=== PATIENT | male | born 1940 | race Caucasian/White ===

== ENCOUNTER 2016-05-22 15:23 | Inpatient (IN) | payer MEDICARE, OTHER, MEDICAID ==
[~2016-05-22] VITALS: Ht 165.1 cm; Wt 60.1 kg
--- NOTE | 2016-05-25 15:08 | CO ---
ADMIT: 05/22/2016 RM/LOC: 310 [facility] MR#: [id number] [address] [address] [place] [address] Consultation SEX: M AGE: 75 : 1940 DATE OF CONSULTATION: 05/25/2016 ATTENDING PHYSICIAN: Jones Guevara CONSULTING PHYSICIAN: Charo Harp APRN TIME IN: 1040 hours. TIME OUT: 1110 hours. REASON FOR CONSULTATION: Supportive Care consultation was requested by Dr. Olguin for discussion of goals for care. HISTORY OF PRESENT ILLNESS: Mr. Rojas is a delightful 75-year-old male with history of COPD. He also has a history of colon cancer and prostate cancer for which he has received treatment for. He was admitted to the hospital on May 22 with a COPD exacerbation and respiratory failure. He has remained on BiPAP. It is of note that he actually tolerates coming off the BiPAP in terms of his oxygen saturations; however, he then gets anxious and requires the mask to be placed back on. He was started on BuSpar therapy today and has used Xanax at times as well. Due to his complexities, Supportive Care consultation was requested to discuss goals for the time ahead. In terms of advanced directives, the patient is a full code status. He states that his brother, Guru Rojas, whose phone number is [phone], is his medical decisionmaker in the event that he cannot make decisions. Farzaneh feels that he has likely completed a healthcare [id number] document stating this. I have requested that his brother bring in the document so that we can review it and if needed, help in complete healthcare [id number] paperwork. He does not have a living will or POLST form on file. Symptomatically, the patient denies complaints currently. He actually appears fairly calm while I am present with him for discussion. He is weak and slightly debilitated. PAST MEDICAL HISTORY: 1. COPD. 2. Hypertension. 3. History of prostate cancer. 4. History of colon cancer. ALLERGIES: THE PATIENT HAS NO KNOWN MEDICATION ALLERGIES. CURRENT MEDICATIONS: Please see the patient's MAR for specific routes and dosages. His current medications are as follows: 1. Verelan PM. 2. Solu-Medrol. 3. BuSpar. 4. Lovenox. ADMIT: 05/22/2016 RM/LOC: 310 [facility] MR#: [id number] [address] [address] [place] [address] Consultation SEX: M AGE: 75 : 1940 5. Hyzaar. 6. Isoptin. 7. Levaquin. 8. Protonix. 9. NovoLog. 10.Zosyn. 11.DuoNeb. 12.Tylenol. 13.Nitrostat. SOCIAL HISTORY: The patient is not . He does not have children. He does not use alcohol, drugs, or tobacco currently. He does have a past smoking history. FAMILY HISTORY: Prior to his hospital stay, he was living at home independently. He states that he could ambulate and take care of his ADLs. His palliative performance scale prior to admission was around 70%. Currently, he is mostly sitting. He is requiring considerable to mainly assistance with ADLs. His intake is reduced. His current palliative performance score is a 40% to 50%. REVIEW OF SYSTEMS: A 10-point review of systems was completed and other than those pertinent positives and negatives mentioned the HPI, it is negative. PHYSICAL EXAMINATION: GENERAL: The patient is examined in the chair. He is in no acute distress. VITAL SIGNS: Temperature 97.5, pulse 123, respirations 24, blood pressure 170/94, oxygen 91% on BiPAP. HEENT: Head is normocephalic. Pupils are equal, round, and reactive with a diameter of 3 mm bilaterally. Oral mucosa pink and moist with fair dentition. NECK: Supple. RESPIRATORY: Respirations are equal and nonlabored on the BiPAP. Lungs are diminished throughout. CARDIOVASCULAR: Tachycardic. GASTROINTESTINAL: Soft, nontender. Bowel sounds are positive. MUSCULOSKELETAL: Generalized weakness. No obvious joint deformities. INTEGUMENTARY: Skin turgor is fair. NEUROLOGIC: Alert and oriented x3. He will follow commands. PSYCHIATRIC: Calm and cooperative. No agitation or delirium noted. IMPRESSION: 1. Debility. 2. Fatigue. 3. Anxiety. 4. Malaise. 5. Moderate protein-calorie malnutrition. 6. Chronic obstructive pulmonary disease with acute exacerbation. 7. History of colon cancer. ADMIT: 05/22/2016 RM/LOC: 310 [facility] MR#: [id number] [address] [place] [address] [place] [address] Consultation SEX: M AGE: 75 : 1940 8. History of prostate cancer. 9. Palliative care. 10.The patient is a full code. PLAN OF TREATMENT: 1. I was able to meet with the patient at the bedside. We reviewed his status and goals for the time ahead. He is hopeful for improvement through this current exacerbation. He is aware that he will likely need rehab at discharge for strengthening. He is hopeful to get back home within the next few weeks. He states that his brothers and sisters can help him if needed. He is aware the chronic and progressive nature of his COPD. He states that his mother of COPD and he watched the progression of the disease through her. 2. Reviewed code status and he directs to be a full code at this time. He is clear that he would not want to be kept alive fpc on ventilator if it ever came to that. 3. We reviewed advanced directives and he thinks that he has completed documentation making his brother, Guru, his healthcare [id number]. I have asked that they please bring this paperwork in if they are able to and we can review it. 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 We would like to thank Dr. Olguin for the invitation to participate in this patient's care. Total consultation time was 30 minutes from 1040 hours to 1110 hours with 15 minutes from 1045 hours to 1100 hours spent [id number] with the patient discussing goals for care and providing counseling and support. We will continue to follow along as needed with this patient. Charo Harp APRN/ wilmar JOB #: [id number] CC: Jones Guevara, Attending Physician Jones Guevara, Family Physician
--- NOTE | 2016-05-28 10:11 | CO ---
ADMIT: 05/22/2016 RM/LOC: 310 [facility] MR#: [id number] [address] [address] HONORIO [place] [address] Consultation SEX: M AGE: 75 : 1940 DATE OF CONSULTATION: 05/26/2016 ATTENDING PHYSICIAN: Jones Guevara CONSULTING PHYSICIAN: Nelson Stout MD CHIEF COMPLAINT: Shortness of breath and hypertension. HISTORY OF PRESENT ILLNESS: The patient is a 75-year-old male, who is known to us at the [facility] with a previous history of hypertension and DVT, PE, and hyperlipidemia. He states in the last couple of weeks he has been feeling worse. He noticed that he was more short of breath and was actually having a difficult time taking his inhalers because he was not able to breathe in well enough. Because of these symptoms, he was finally seen in the emergency room and was subsequently admitted for a COPD exacerbation. Over the last couple of days, he has continued to have some shortness of breath and wheezing. We were asked to see him today because of his blood pressure, which has been elevated at times with a systolic anywhere from 200 to 210. The patient states when he checks his blood pressure at home, which is not very often, it is usually 140 to 150 systolic. He had been compliant with his medicines. He normally takes a beta-irma, but has been off that during this hospital stay for concern of worsening of his wheezing. He has not had any chest pain or chest tightness and denies any palpitations. He had no other complaints today. PAST MEDICAL HISTORY: Significant for: 1. Hypertension. 2. Hyperlipidemia. 3. COPD. 4. History of tobacco abuse. 5. History of pulmonary embolus and DVT. 6. Stomach ulcer. 7. Appendectomy. 8. Colon resection for colon cancer. 9. Prostatectomy for prostate cancer. 10.Reflux. 11.Hearing loss. 12.Hypothyroidism. 13.Macular degeneration. ALLERGIES: NONE. HOME MEDICATIONS: Have included: 1. Clonazepam 0.5 mg 2 times daily. 2. Guaifenesin 400 mg 4 times daily as needed. 3. Hydrochlorothiazide 12.5 mg daily. 4. Isosorbide mononitrate 30 mg daily. 5. Levothyroxine 0.05 mg daily. 6. Loratadine 10 mg daily. ADMIT: 05/22/2016 RM/LOC: 310 [facility] MR#: [id number] 2620 [facility] [address] [place] [address] [place] [address] Consultation SEX: M AGE: 75 : 1940 7. Lovastatin 20 mg daily. 8. Metamucil daily. 9. Metoprolol tartrate 25 mg twice daily. 10.Omeprazole 20 mg twice daily. 11.Proventil 2 puffs every 4 to 6 hours as needed. 12.Singulair 10 mg daily. 13.Symbicort 2 puffs 2 times daily. 14.Tudorza Pressair 1 puff twice daily. 15.Vitamin B12, 500 mcg daily. 16.Vitamin D3, 2000 units daily. 17.Xarelto 20 mg daily. FAMILY HISTORY: Significant for a brother with diabetes. Father had a myocardial infarction and hypertension, and a mother had diabetes and hypertension. SOCIAL HISTORY: The patient has a significant history of smoking in the past and does drink coffee on a regular basis. He has a previous history of alcohol use, but quit drinking in 1989. He is retired. REVIEW OF SYSTEMS: GENERAL: Denies fatigue, fever, chills, sweats, rash, or weight loss. EYES: He also has difficulty with vision. Denies double vision, blurred vision, cataracts, or glaucoma. ENT: He does have some difficulty with hearing. Denies hearing loss or problems with nose, mouth or throat. PULMONARY: He has shortness of breath and wheezing. He has had an occasional cough. Denies sputum production, asthma, emphysema or bronchitis. Denies snoring loudly, wakefulness at night, or fatigue upon awakening. GASTROINTESTINAL: Denies heartburn or difficulty swallowing. No change in bowel habits. Denies dark or bloody stools. No history of ulcers, hiatal hernia, or gallbladder or liver disease. GENITOURINARY: Denies dysuria, hematuria, nocturia, urinary tract infection, or kidney stones. Denies history of renal insufficiency or failure. MUSCULOSKELETAL: He has had some arm and leg pains. Denies history of arthritis or gout. ENDOCRINE: Denies history of thyroid dysfunction or diabetes. HEMATOLOGIC: Denies history of anemia, easy bruising, or cancer. NEUROLOGIC: He has had some recent fatigue and weakness. Denies chronic headaches, dizziness, syncope, stroke, seizures or numbness or tingling. PSYCHIATRIC: Denies history of mental illness or feelings of depression. PHYSICAL EXAMINATION: VITAL SIGNS: Blood pressure was 180/120, heart rate 120, respirations 20 to 24, temperature 96.6 degrees Fahrenheit. SKIN: [place], warm and dry. EYES: Sclerae clear. No xanthelasmas. ENT: Oral mucosa is pink and moist. No jugular venous distention or carotid bruits. ADMIT: 05/22/2016 RM/LOC: 310 [facility] MR#: [id number] [address] [place] [phone] [place] [address] Consultation SEX: M AGE: 75 : 1940 CHEST: Lungs having diminished breath sounds and scattered wheezes throughout. HEART: Tachycardic without murmur. ABDOMEN: Soft and nontender. MUSCULOSKELETAL: Gait is normal. EXTREMITIES: Peripheral pulses palpable. No clubbing, cyanosis or edema. PSYCHIATRIC: Alert and oriented. Mood and affect are appropriate. ASSESSMENT: 1. Hypertension. 2. Chronic obstructive pulmonary disease exacerbation. 3. History of colon cancer. 4. Prostate cancer. 5. History of deep venous thrombosis and pulmonary embolism. 6. Hyperlipidemia. 7. History of smoking. PLAN: At this point, I believe a lot of the patient's hypertension is due to his current illness. We will titrate up on his medications. He may also have a component of anxiety, so would consider increasing anxiety medications if this continues to be an issue. At some point, would add back his beta-irma as I think that this is part of the reason his heart rate is fast, but because there was concern with the wheezing, we can certainly hold off for now as I do not think his tachycardia is a big concern. We would also consider rechecking echocardiogram sometime in the future. The last time we did in 2014 was normal. Nelson Stout MD/ wilmar JOB #: [id number] CC: Jones Guevara, Attending Physician Jones Guevara, Family Physician Jones Guevara MD
--- NOTE | 2016-05-28 10:29 | CO ---
ADMIT: 05/22/2016 RM/LOC: 310 [facility] MR#: [id number] [address] [address] SONALIJEREMÍAS [place] [place] [address] Consultation SEX: M AGE: 75 : 1940 DATE OF CONSULTATION: 05/22/2016 ATTENDING PHYSICIAN: Jones Guevara CONSULTING PHYSICIAN: Rudy Olguin MD HISTORY OF PRESENT ILLNESS: He is 75. He worked at the [employer] in [place] and in [place] in [facility]. He has given up smoking 10 year ago. He is on oxygen dependent for the last 3 years. He had previous prostate cancer operation done at the [facility] and had colon cancer operated in [place] by Dr. Sanford. No chemoradiation. He has hypertension. He has COPD. He uses inhaler. He has been to the ER today and admitted with COPD exacerbation. He had to know pneumonia seen on the chest x-ray, which I have personally reviewed from today and compared with 04/20/2016 and 04/09/2015 films. No pneumonia seen, no effusion seen. COPD change is detected. His blood gases today; 7.324, PCO2 of 67.2, PO2 of 95.7 and bicarb 34.2, potassium 4.2, glucose 150, BUN 29, creatinine 1.2. White count 8.3, hemoglobin 10.7, platelets 213. Lactic acid 1.6. He has wheezing. He is using BiPAP. PHYSICAL EXAMINATION: GENERAL: Appears comfortable. He was able to give history, kind of a faint voice, wants to rest. VITAL SIGNS: His blood pressure is high, it was 181/103. Heart rate 121, saturation, which was 97%, I see it has gone up to 97%. RESPIRATIONS: No distress, no edema, no calf tenderness. He does have expiratory wheeze. He has no rales, no heart murmur. ABDOMEN: Soft and nontender. He has been started on levofloxacin and Zosyn and IV fluid is going at 100 mL an hour and he will also get Solu-Medrol 125 q.8 hours, which I plan to continue at this time, but may cut down tomorrow when he is stable. IMPRESSION: 1. Chronic obstructive pulmonary disease exacerbation. ADMIT: 05/22/2016 RM/LOC: 310 [facility] MR#: [id number] [address] [address] FARZANEH [place] [address] Consultation SEX: M AGE: 75 : 1940 2. Hypercapnic respiratory failure. 3. Chronic hypoxia, oxygen dependent. 4. Hypertension. 5. Tachycardia. 6. History of colon cancer operated. 7. History of prostrate cancer operated. He lives alone here in [place]. He has never been , no children. He has 1 brother, who lives nearby. We will keep continuing the BiPAP. We will hopefully avoid the intubation. I am going to give him verapamil IV and p.o. with an aim to keep the heart rate and the blood pressure down. One time Xanax 0.25 mg has also been written. Hopefully, if we can relax that will help. I repeat a blood gas now to check and compare with the earlier one. Rudy Olguin MD/ wilmar JOB #: [id number] CC: Jones Guevara, Attending Physician Jones Guevara, Family Physician
--- NOTE | 2016-05-30 11:23 | HP ---
ADMIT: 05/22/2016 RM/LOC: 310 [facility] MR#: [id number] [address] [address] [place] [address] History and Physical SEX: M AGE: 75 : 1940 DATE OF SERVICE: CHIEF COMPLAINT AND HISTORY OF PRESENT ILLNESS: This 75-year-old male is admitted with increasing respiratory insufficiency. The patient has had longstanding severe COPD, which is oxygen dependent. MEDICATIONS: He has been taking at home: 1. Albuterol. 2. Budesonide. 3. Carbamide. 4. Clonazepam. 5. Cyanocobalamin. 6. Docusate. 7. Guaifenesin. 8. Hydrochlorothiazide 12.5 mg. 9. Isordil. 10.L-thyroxine 50 mcg .. 11.Loratadine. 12.Lovastatin. 13.Metoprolol. 14.Omeprazole. 15.Rivaroxaban. 16.Sulfamethoxazole. 17.Aspirin. 18.Cholecalciferol. 19.Montelukast. 20.Multivitamin. 21.Incruse Ellipta. 22.Singulair. He has been followed by the CT. He has also been seen by Oncology. ALLERGIES: NONE. SOCIAL HISTORY: The patient smoked until 10 years ago, he was a pack-a-day smoker, most of his life. He does not drink alcohol. FAMILY HISTORY: Includes heart disease, diabetes, and cancer. REVIEW OF SYSTEMS: HEENT: The patient wears glasses. CARDIORESPIRATORY: There is no history of congestive heart failure, pacemaker, edema, myocardial infarction. GI: There has been no nausea, vomiting, constipation, bloody stools, or diarrhea. : The patient has a history of prostate cancer. METABOLIC/ENDOCRINE: The patient has a history of hypothyroidism. The patient also has a history of colon cancer. PHYSICAL EXAMINATION: VITAL SIGNS: Blood pressure is mildly elevated 155/84, respirations are 18. ADMIT: 05/22/2016 RM/LOC: 310 [facility] MR#: [id number] [address] [address] [place] [address] History and Physical SEX: M AGE: 75 : 1940 GENERAL: The patient is alert, cooperative, and oriented x3. HEENT: The patient is currently on BiPAP, and he feels this is quite helpful to him. NECK: There is no carotid bruits present. HEART: Regular rhythm with no murmurs heard. LUNGS: Have rales bilaterally, occasional wheeze, and tachypnea present. ABDOMEN: Soft, nontender. Liver is not enlarged. Spleen is not palpable. No abnormal masses are palpated. Femoral pulses are strong and equal bilaterally. GENITALIA: Normal. EXTREMITIES: No cyanosis, clubbing or edema. ASSESSMENT: 1. Acute exacerbation of severe chronic obstructive pulmonary disease. 2. Hypothyroidism. 3. History of prostate cancer. 4. History of colon cancer. 5. Anxiety. 6. Hypertension. 7. Hypercholesterolemia. Jones Guevara MD/ wilmar JOB #: [id number] CC: Jones Guevara, Attending Physician Jones Guevara, Family Physician
--- NOTE | 2016-06-02 00:45 | ER ---
ADMIT: 05/22/2016 RM/LOC: 310 [facility] MR#: [id number] [id number] [place], [place] [address] [place] [address] Emergency Room Report SEX: M AGE: 75 : 1940 DATE: 05/22/2016 HISTORY OF PRESENT ILLNESS: The patient is a 75-year-old male, who was brought in by private vehicle with shortness of breath, productive cough for 10 days now. He has been treated with azithromycin and prednisone, but he felt like it was worse. PHYSICAL EXAMINATION: VITAL SIGNS: His vitals on admission to the emergency room; 148/87 blood pressure, MAP of 96, pulse 108, respirations 23, temp 97.6, O2 sats at 3 L 95% and he was working at it. RESPIRATIONS: Respiratory distress, fatigue, accessory muscle use. Retraction, splinting, decreased air movement. He is tachycardic. Otherwise, the rest of the physical examination see T-sheet. PAST MEDICAL HISTORY: Includes hypercholesterolemia, hypothyroidism, COPD, hypertension, and he is a chronic oxygen user. He used to smoke, he has a history. LABS: As I discuss originally, A negative. We did a sepsis workup on him. Procalcitonin less than 0.05. His CMP; sodium 133 with a chloride of 89, carbon dioxide 35, BUN 29, glucose 150, creatinine was 8.1, albumin 3.3, magnesium 2.5. Glomerular filtration is 60 with the MB of 4.9, and negative troponin. White count is 8.3 with 10.7 hemoglobin and hematocrit is 35.2. Blood cultures pending. Lactic acid is 1.6. The pCO2 corrected is 84.2 with a pH of 7.2, O2 sats 94, HCO3 of 36.9, INR 1.0. EKG 110, sinus tachycardia. The patient will be admitted by Dr. Willams and orders received by Dr. Willams. CLINICAL IMPRESSION: 1. Chronic obstructive pulmonary disease exacerbation. 2. Moderate sepsis secondary to respiratory distress. 3. Pneumonia. ANDREW Grubbs / Vinayak Hartley MD / modl JOB #: [id number] CC: Jones Guevara MD, Attending Physician Jones Guevara MD, Family Physician
--- NOTE | 2016-06-04 11:40 | DS ---
ADMIT: 05/22/2016 RM/LOC: 304 [facility] MR#: [id number] [address] [place], [place] [address] [place] [address] Discharge Summary SEX: M AGE: 75 : 1940 ADMISSION DATE: 05/22/2016 DISCHARGE DATE: 06/02/2016 HISTORY AND PHYSICAL: Please see the chart. LABORATORY AND X-RAY DATA: Please see the chart. CLINICAL COURSE: This 75-year-old male is admitted with an acute exacerbation of COPD. The patient initially required BiPAP. He did have hypercarbia and was quite dyspneic. This patient's problem has been end stage COPD. He has had multiple admissions, and he was placed on intravenous antibiotics. The patient again was referred to Pulmonology. He was placed on intravenous steroids, IV fluids were given. He was also started on Zosyn 3.375 g every 8 hours, DuoNeb inhalers. His chest x-ray showed no evidence of pneumonia. Xanax was given p.o. p.r.n. Verapamil also was given intravenously, and it was felt this was again an acute exacerbation of COPD. The patient slowly improved and during the hospitalization he had decided he did not want to be intubated but he really did not want aggressive treatment. He was covered with Protonix because of the steroids. His Lopressor was discontinued because of the beta irma. He was given Lovenox for DVT prevention, and he would have little air hunger. The patient has requested care and comfort measures only. I thought this was quite reasonable. He was placed on Ensure daily. Steroids were decreased. The patient is going to go on hospice and go to the senior living. Cardiology was asked to see the patient. He was given hydralazine and Xanax. He was hypertensive and was placed on clonidine 0.2 mg t.i.d. and at the time of discharge, the patient was alert, oriented. He was willing to go to the senior living. He did want care and comfort measures only. DISCHARGE MEDICATIONS: 1. BuSpar. 2. Prednisone 10 mg b.i.d. 3. Hyzaar 100/25 daily. 4. Levaquin 750 mg orally for 3 more days then discontinue. 5. Verelan 300 mg daily. 6. DuoNeb inhalations q.i.d. p.r.n. 7. Subcutaneous heparin. His Zosyn was discontinued. ADMIT: 05/22/2016 RM/LOC: 304 [facility] MR#: [id number] [address] [address] [place] [address] Discharge Summary SEX: M AGE: 75 : 1940 FINAL DIAGNOSES: 1. Acute exacerbation of COPD (chronic obstructive pulmonary disease). 2. History of tobacco abuse. 3. History of pulmonary embolism. 4. History of stomach ulcer. 5. History of colon resection for colon cancer. 6. History of prostatectomy for prostate cancer. 7. Gastroesophageal reflux. 8. History of hypothyroidism. 9. Macular degeneration. 10.The patient will be followed by hospice. 11.Hypertension. Jones Guevara MD/ makedaf JOB #: [id number] CC: Jones Guevara MD, Attending Physician Jones Guevara MD, Family Physician
== END 2016-06-02 12:30 | disposition short-term general hospital (02) | DRG 189 ==
LOC: ER 15:23 → 3ICU 17:46
PROC: 5A09557 Assistance with Respiratory Ventilation, Greater than 96 Consecutive Hours, Continuous Positive Airway Pressure (ICD-10-PCS; principal; 2016-05-22)
DX: J96.92 Respiratory failure, unspecified with hypercapnia (principal); E44.0 Moderate protein-calorie malnutrition; Z99.81 Dependence on supplemental oxygen; J44.1 Chronic obstructive pulmonary disease with (acute) exacerbation; Z51.5 Encounter for palliative care; F41.9 Anxiety disorder, unspecified; E78.00 Pure hypercholesterolemia, unspecified; E03.9 Hypothyroidism, unspecified; I10 Essential (primary) hypertension; R09.02 Hypoxemia; R00.0 Tachycardia, unspecified; H35.30 Unspecified macular degeneration; E78.5 Hyperlipidemia, unspecified; K21.9 Gastro-esophageal reflux disease without esophagitis; H91.90 Unspecified hearing loss, unspecified ear; H53.9 Unspecified visual disturbance; Z87.891 Personal history of nicotine dependence; Z85.46 Personal history of malignant neoplasm of prostate; Z79.82 Long term (current) use of aspirin; Z86.718 Personal history of other venous thrombosis and embolism; Z86.711 Personal history of pulmonary embolism; Z87.11 Personal history of peptic ulcer disease; Z82.49 Family history of ischemic heart disease and other diseases of the circulatory system; Z85.038 Personal history of other malignant neoplasm of large intestine; Z66 Do not resuscitate